=== PATIENT | female | born 1970 | race Caucasian/White ===

== ENCOUNTER 2016-09-22 20:39 | Emergency (ER) | payer BC ==
[~2016-09-22] VITALS: Ht 167.6 cm; Wt 55.9 kg
[~2016-09-22 20:39] MED LIST: ATIVAN 0.50.5 MG/TAB PO; MULTIPLE VITAMI1 CAP
[2016-09-22 20:43] VITALS: TEMP 98.2
[2016-09-22 21:22] VITALS: BP 142/98
[2016-09-22 21:35] VITALS: PULSE 78
== END 2016-09-22 21:35 | disposition home or self-care (01) ==
LOC: COL.ER 20:39
DX: I10 Essential (primary) hypertension (principal); F41.9 Anxiety disorder, unspecified

== ENCOUNTER 2016-09-26 21:39 | Emergency (ER) | payer BC ==
[~2016-09-26] VITALS: Ht 167.6 cm; Wt 58.2 kg
[2016-09-26 21:42] VITALS: TEMP 98
[2016-09-26] MEDS ORDERED: INDERAL 20MG20 MG PO (22:04)
[2016-09-26 22:06] LABS: BASO # 0.1 (0.0-0.2); BASO % 0.7 % (0.0-2.0); EOS # 0.8 (0.0-0.7); GRAN # 3.8 (1.4-6.5); GRAN % 46.3 % (42.2-75.2); HEMATOCRIT 39.4 % (37.0-47.0); HEMOGLOBIN 13.4 g/dl (12.5-16.0); LYMPH # 2.7 (1.2-3.4); LYMPH % 33.2 % (20.0-51.0); MEAN CELL VOLUME 96 fl (80.0-100.0); MEAN CORPUSCULAR HEMOGLOBIN 33 pg (27.0-31.0); MEAN CORPUSCULAR HGB CONC 34 g/dl (33.0-37.0); MEAN PLATELET VOLUME 8.9 fl (7.4-10.4); MONO # 0.8 (0.1-0.6); MONO % 9.4 % (1.7-9.3); PLATELET COUNT 270 K/mm3 (130-400); RED BLOOD COUNT 4.09 M/mm3 (4.10-5.30); REDCELL DISTRIBUTION WIDTH-CV 12.6 % (11.5-14.5); WHITE BLOOD COUNT 8.2 K/mm3 (4.8-10.8)
[2016-09-26] MEDS ORDERED: ASPIRIN 32325 MG/TAB PO (22:06)
[2016-09-26] MEDS ORDERED: TYLENOL 500MG500 MG PO (22:07)
[2016-09-26 22:14] LABS: ADJUSTED CALCIUM 8.7 mg/dL (8.4-10.2); ALANINE AMINOTRANSFERASE 18 U/L (9-52); ALBUMIN 4.4 gm/dL (3.5-5.0); ALKALINE PHOSPHATASE 57 U/L (50-136); ANION GAP 12 mmol/L (7-16); BILIRUBIN,TOTAL 0.4 mg/dL (0.0-1.0); BLOOD UREA NITROGEN 13 mg/dL (7-17); CARBON DIOXIDE 24 mmol/L (22-30); CHLORIDE 102 mmol/L (98-107); CREATININE, serum 0.83 mg/dL (0.52-1.25); GLUCOSE 86 mg/dL (74-106); POTASSIUM 3.9 mmol/L (3.4-5.0); SODIUM 138 mmol/L (137-145); TOTAL PROTEIN 7.9 gm/dL (6.4-8.2)
[2016-09-26 22:21] LABS: INR 0.9 (0.8-3.0)
[2016-09-26 22:23] LABS: PARTIAL THROMBOPLASTIN TIME 32.9 SECONDS (26.0-37.0)
[2016-09-26 22:28] LABS: TROPONIN-I < 0.012 ng/mL (0.000-0.034)
[2016-09-26 22:46] VITALS: BP 121/81; PULSE 66
== END 2016-09-26 22:51 | disposition home or self-care (01) ==
LOC: COL.ER 21:39
PROVIDERS: Family Medicine
DX: I10 Essential (primary) hypertension (principal); Z79.82 Long term (current) use of aspirin

== ENCOUNTER → 2017-03-29 | Outpatient (CLI) | payer BC ==
[~2017-03-29] MED LIST changes: +ASPIRIN 32325 MG/TAB PO; +INDERAL 20MG20 MG PO; +TYLENOL 500MG500 MG PO
== END ==
LOC: COL.RAD 14:45
DX: M62.89 Other specified disorders of muscle (principal)
CPT/HCPCS: A9585

== ENCOUNTER → 2017-11-07 | Outpatient (CLI) | payer BC | LOC: BHSO 15:18 | DX: F41.1 Generalized anxiety disorder (principal) | CPT/HCPCS: G0463 ==

== ENCOUNTER → 2017-11-17 | Outpatient (CLI) | payer BC | LOC: COL.PUL 13:00 | DX: R06.02 Shortness of breath (principal) | CPT/HCPCS: J7674 ==

== ENCOUNTER → 2018-01-18 | Outpatient (CLI) | payer BC | LOC: BHSO 16:00 | DX: F41.1 Generalized anxiety disorder (principal) | CPT/HCPCS: G0463 ==

== ENCOUNTER → 2018-05-14 | Outpatient (CLI) | payer BC | LOC: BHSO 16:00 | DX: F41.1 Generalized anxiety disorder (principal) | CPT/HCPCS: G0463 ==

== ENCOUNTER → 2018-07-20 | Outpatient (CLI) | payer BC | LOC: BHSO 16:18 | DX: F41.1 Generalized anxiety disorder (principal) | CPT/HCPCS: G0463 ==

== ENCOUNTER → 2018-10-17 | Outpatient (CLI) | payer BC | LOC: BHSO 09:01 | DX: F90.0 Attention-deficit hyperactivity disorder, predominantly inattentive type (principal) | CPT/HCPCS: G0463 ==

== ENCOUNTER → 2019-01-11 | Outpatient (CLI) | payer BC | LOC: BHSO 16:13 | DX: F06.32 Mood disorder due to known physiological condition with major depressive-like episode (principal) | CPT/HCPCS: G0463 ==

== ENCOUNTER → 2019-09-19 | Outpatient (CLI) | payer BC | LOC: BHSO 15:03 | DX: F41.1 Generalized anxiety disorder (principal) | CPT/HCPCS: G0463 ==

== ENCOUNTER → 2019-12-13 | Outpatient (CLI) | payer BC | LOC: BHSO 16:16 | DX: F41.1 Generalized anxiety disorder (principal) | CPT/HCPCS: G0463 ==